=== PATIENT | female | born 1970 ===

== ENCOUNTER 2022-02-11 04:50 | Day surgery (SDC) | payer OTHER ==
[~2022-02-11] VITALS: Ht 167.6 cm; Wt 83.5 kg
[~2022-02-11 04:50] MED LIST: COZAAR100 MG PO; GLIPIZIDE XL5 MG PO; HYDROCHLOROTHIA25 MG PO; METFORMIN HCL500 M3 PO; NORVASC10 MG PO
== END 2022-02-11 11:35 | disposition home or self-care (01) ==
LOC: CIR.AMB 04:50
PROVIDERS: ATTEND Specialist
DX: K80.10 Calculus of gallbladder with chronic cholecystitis without obstruction (principal); K82.8 Other specified diseases of gallbladder; Z20.822 Contact with and (suspected) exposure to COVID-19; Z88.0 Allergy status to penicillin; I10 Essential (primary) hypertension; Z71.6 Tobacco abuse counseling; F17.210 Nicotine dependence, cigarettes, uncomplicated; F32.A Depression, unspecified; M51.36 Other intervertebral disc degeneration, lumbar region; E11.9 Type 2 diabetes mellitus without complications; Z79.84 Long term (current) use of oral hypoglycemic drugs